=== PATIENT | female | born 1950 | race Caucasian/White ===

== ENCOUNTER 2017-09-29 09:21 | Outpatient (CLI) ==
[2013-01-26 09:12] VITALS: TEMP 97.2; BMI 22.4
== END 2017-09-29 09:22 | disposition home or self-care (01) ==
LOC: RAD 09:21
PROVIDERS: ATTEND Physician Assistant
DX: Z12.31 Encounter for screening mammogram for malignant neoplasm of breast (principal)
CPT/HCPCS: 77067

== ENCOUNTER 2018-10-09 12:59 | Outpatient (CLI) ==
[2013-01-26 09:12] VITALS: TEMP 97.2; BMI 22.4
--- NOTE | 2018-10-09 14:07 | DEXA ---
EXAM: BONE DENSITOMETRY HISTORY: Post menopausal. FINDINGS: Exam of the lumbar spine demonstrated a total bone mineral density of 1.092 g/cm2. T score is -0.7. Exam of the hips revealed a total mean bone mineral density of 0.751 g/cm2. Mean hip T score: -2.0 FRAX WHO Fracture Risk Assessment. Ten year probability of fracture (%). Major Osteoporotic Fracture 25.3% Hip Fracture 8.9%. IMPRESSION: 1. Values presented indicate normal bone density of the spine. 2. Values presented indicate osteopenia of the hips.
--- NOTE | 2018-10-10 09:31 | MAMMO ---
EXAM: Bilateral digital screening mammogram (2-D and 3-D) History: Screening Comparison: Bilateral mammogram 09/29/2017 Findings: MLO and CC views of bilateral breasts demonstrate heterogeneously dense breast parenchyma which can obscure small lesions. CAD was reviewed by the radiologist. Tomosynthesis was performed. There are no dominant masses, no suspicious microcalcifications and no architectural distortions Impression: Stable negative mammogram. Recommend followup routine screening mammography in 1 year. BIRADS 1, negative
== END 2018-10-09 13:00 | disposition home or self-care (01) ==
LOC: RAD 12:59
PROVIDERS: ATTEND Nurse Practitioner Family
DX: Z12.31 Encounter for screening mammogram for malignant neoplasm of breast (principal); Z78.0 Asymptomatic menopausal state; Z13.820 Encounter for screening for osteoporosis